=== PATIENT | female | born 1945 | race Caucasian/White ===

== ENCOUNTER → 2016-11-26 | Outpatient (CLI) | payer MEDICARE, OTHER ==
[~2016-11-26] MED LIST: ASPIRIN EC81 MG PO; COZAAR DPS50 MG PO; HYDROCODONE 5MG/5 MG PO; IMDUR DPS30 MG PO; LIPITOR80 MG PO; LOPRESSOR DPS50 MG PO; NITROSTAT0.4 MG SL; OMNICEF DPS300 MG PO; PLAVIX75 MG PO; SINEMET 25-1001 EACH PO
== END | disposition home or self-care (01) ==
LOC: RAD.S 13:45
DX: N20.0 Calculus of kidney (principal)